=== PATIENT | male | born 1945 | race Caucasian/White ===

== ENCOUNTER → 2017-08-03 | Outpatient (CLI) | payer MEDICARE, BC, OTHER ==
--- NOTE | 2017-08-03 17:03 | KCIC ---
INDICATION: Radiculopathy. Chronic neck pain extending into both shoulder blades. Prior surgery. TECHNIQUE: Sagittal T1, sagittal T2, sagittal STIR, axial T2, and axial T2 gradient sequences are provided. Comparison is from July 28, 2016. FINDINGS: There is no change in alignment. There is hardware artifact from anterior cervical fusion from C4 through C6. There is no worrisome marrow lesion or marrow edema. There is no definite cord signal abnormality. The cervicomedullary junction is unremarkable. Allowing for mild motion and for hardware artifact, degenerative findings will be estimated below: C2-C3: Disc osteophyte complex, uncinate process spurring, buckling of ligamentum flavum, and facet hypertrophy are also present. Midline AP diameter of the thecal sac is narrowed to 7 mm. There is no cord flattening. There is no definite foraminal narrowing. C3-C4: Disc osteophyte complex and uncinate process spurring are noted. There is also buckling of ligamentum flavum and facet hypertrophy which is greater on the left. Midline AP diameter of the thecal sac is narrowed to 7 mm. There is probably foraminal narrowing bilaterally which is at least mild. C4-C5: There is no definite canal or foraminal compromise. C5-C6: There is no definite canal or foraminal compromise. Hardware artifact limits evaluation. C6-C7: There is a disc osteophyte complex and uncinate process spurring. Midline AP diameter of the thecal sac is 10 mm, minimally narrowed. Foraminal narrowing bilaterally is probably high-grade. C7-T1: Disc osteophyte complex and uncinate process spurring are noted with mild left foraminal narrowing. Overall, findings are similar to prior study. IMPRESSION: 1. Degenerative changes in the cervical spine are greatest at C2-C3, C3-C4, and C6-C7. Findings are similar to prior study. 2. Anterior cervical fusion of C4-C6. 3. Study again is degraded by motion. Consider post myelogram CT if further workup is required. Electronically signed by: Kevin Gonzalez MD (08/03/2017 5:00 PM) [facility]-[email or web address]
== END | disposition home or self-care (01) ==
LOC: KCIC MRI 15:55
PROVIDERS: ATTEND Neurological Surgery
DX: M47.892 Other spondylosis, cervical region (principal)
CPT/HCPCS: 72141

== ENCOUNTER → 2018-12-05 | Outpatient (CLI) | payer MEDICARE, BC, OTHER ==
[2017-09-02 11:00] VITALS: BP 149/65
[~2018-12-05] MED LIST: ASPI-482 PO; CLON0.5T11 PO; CRESTOR5 MG PO; DOCU-109 PO; FINA5TAB PO; FLUO15CR TP; HYDR-2765 PO; HYDR-3165 PO; METH-38 PO; MONT10TA9 PO; VALS40TA2 PO
--- NOTE | 2018-12-05 09:54 | KCIC ---
EXAM: Cervical spine MRI without contrast. HISTORY: Radiculopathy. TECHNIQUE: Multiplanar, multisequence magnetic resonance imaging of the cervical spine was performed without contrast. COMPARISON: 08/03/2017 FINDINGS: There is instrumented anterior spinal fusion and interbody fusion at C4-C6. The presence of metallic instrumentation limits evaluation at these levels. There is mild anterolisthesis of C6 on C7 and T1 on T2. There is degenerative endplate remodeling and disc desiccation at all levels. No suspicious osseous lesion is seen. There is no acute or subacute fracture. There is edema within the right posterior paraspinal musculature at the edge C4 and surrounding the right facet joint C4-C5, likely degenerative or inflammatory in etiology. There is deformation of the cervical spinal cord at multiple levels due to central canal stenosis. There is an elongated T2 hyperintense lesion within the right aspect of the cervical spinal cord at C2, likely due to myelomalacia. There is suspected congenital narrowing of the central canal at the cervical levels. At C2-C3, there is a broad-based posterior central disc protrusion superimposed on a disc bulge and endplate remodeling. There is moderate right and mild left facet arthropathy. There is buckling of the ligamentum flavum. There is mild right foraminal stenosis. There is slight deformation of the ventral aspect of the spinal cord and mild central canal stenosis measuring 9.0 mm in anterior posterior dimension. At C3-C4, there is a broad-based posterior central disc protrusion superimposed on a disc bulge and endplate osteophytosis. There is moderate bilateral facet arthropathy. There is bilateral uncovertebral arthropathy. There is mild to moderate right and moderate to severe left foraminal stenosis. There is deformation of the cervical spinal cord and moderate central canal stenosis measuring 7.7 mm anterior posterior dimension. At C4-C5, there is instrumented fusion. There is moderate to severe bilateral facet arthropathy. There is mild right foraminal stenosis. There is mild central canal stenosis measuring 8.6 mm in anterior posterior dimension. At C5-C6, there is instrumented fusion. There is moderate bilateral facet arthropathy. There is moderate bilateral foraminal stenosis. At C6-C7, there is a disc bulge and endplate osteophytosis with bilateral posterior lateral disc osteophyte complexes. There is mild facet arthropathy. There is uncovertebral arthropathy. There is moderate right greater than left foraminal stenosis. IMPRESSION: 1. Demonstrated anterior spinal fusion and interbody fusion at C4-C6. This is stable in appearance. 2. Multilevel degenerative change throughout the cervical spine, described in detail above. The combination of degenerative changes and suspected congenital narrowing of the cervical central canal results in significant stenosis at the aforementioned levels. These findings are not significantly changed compared to the prior study. 3. Linear T2 hyperintense lesion within the right lateral aspect of the cervical spinal cord at C2. This is stable in appearance and likely due to focal myelomalacia. There is deformation of the cervical spinal cord at multiple additional levels without convincing spinal cord signal abnormality. 4. Suspected edema within the right posterior paraspinal musculature at C3-C4 and surrounding the right facet joint at C4-C5, likely degenerative/inflammatory. Electronically signed by: Neida Ewing MD (12/05/2018 9:51 AM) [facility]-KCIC[facility]
== END | disposition home or self-care (01) ==
LOC: KCIC MRI 08:28
PROVIDERS: ATTEND Neurological Surgery
DX: M43.22 Fusion of spine, cervical region (principal); M47.892 Other spondylosis, cervical region; M50.10 Cervical disc disorder with radiculopathy, unspecified cervical region; M25.78 Osteophyte, vertebrae; M12.88 Other specific arthropathies, not elsewhere classified, other specified site; M48.02 Spinal stenosis, cervical region; M50.11 Cervical disc disorder with radiculopathy, high cervical region
CPT/HCPCS: 72141

== ENCOUNTER → 2019-11-26 | Outpatient (CLI) | payer MEDICARE, BC, OTHER ==
[2017-09-02 11:00] VITALS: BP 149/65
[~2019-11-26] MED LIST changes: +CLON-77 PO; -CLON0.5T11 PO; +MONT10TA49 PO; -MONT10TA9 PO
--- NOTE | 2019-11-26 17:56 | KCIC ---
CERVICAL SPINE 2-3V History: Chronic neck pain. Technique: 2 views cervical spine. Comparison: MRI December 05, 2018. Findings: Anterior stabilization and interbody fusion C4-C6. Unchanged alignment. Normal vertebral body height. No fracture. Prevertebral soft tissues unremarkable. Multilevel cervical spondylosis most prominent C2-C3 and C3-C4. C7-T1 articulation not well seen on lateral view due to overlying structures. Impression: 1. Anterior stabilization and interbody fusion C4-C6, unchanged alignment. 2. Multilevel cervical spondylosis. Electronically signed by: Camron Andrade DO (11/26/2019 5:53 PM) [facility]
== END | disposition home or self-care (01) ==
LOC: KCIC 13:59
PROVIDERS: ATTEND Neurological Surgery
DX: M47.812 Spondylosis without myelopathy or radiculopathy, cervical region (principal); M43.22 Fusion of spine, cervical region
CPT/HCPCS: 72040

== ENCOUNTER → 2019-12-11 | Outpatient (CLI) | payer MEDICARE, BC, OTHER ==
[2017-09-02 11:00] VITALS: BP 149/65
--- NOTE | 2019-12-11 17:20 | KCIC ---
CT scan of the cervical spine without contrast 12/11/2019 Clinical history: Neck pain which radiates down both arms. Technique: Unenhanced, contiguous, 0.6 mm axial sections were obtained through the cervical spine. 2.5 mm reconstructed axial and 2 mm coronal and sagittal reconstructed images were obtained. One or more of the following individualized dose reduction techniques were utilized for this study: 1. Automated exposure control. 2. Adjustment of the mA and/or kV according to patient size. 3. Use of iterative reconstruction technique. Findings: Comparison is made to the patient's MRI of the cervical spine dated 12/05/2018. Sagittal and coronal reconstructed images demonstrate minimal lateral curvature of the cervical spine, convex to the right. There is straightening of the normal cervical lordosis. The patient is post anterior discectomy and fusion using an anterior plate, bone screws and bone graft material at C4-5 and C5-6. Degenerative changes are seen involving the remaining cervical disc spaces consisting of varying degrees of disc space narrowing, vertebral endplate sclerosis and mild to moderate anterior and posterior vertebral body osteophyte formation. No fracture or subluxation of the cervical vertebrae is seen. At the C2-3 disc space there is a mild generalized disc bulge. Degenerative changes are seen involving the uncovertebral and facet joints, right greater than left. These findings result in mild central spinal canal stenosis with minimal cord impingement. No neural foraminal stenosis is seen. At the C3-4 disc space there is a mild to moderate generalized disc bulge. Degenerative changes are seen involving the uncovertebral and facet joints bilaterally. These findings result in mild to moderate central spinal canal stenosis with mild cord impingement. Mild to moderate bilateral neural foraminal stenosis is seen. At the C4-5 level posterior vertebral body osteophyte formation is seen. Degenerative changes are seen involving the uncovertebral and facet joints bilaterally. These findings do not result in significant central spinal canal or neural foraminal stenosis. At the C5-6 level posterior vertebral body osteophyte formation is seen. Degenerative changes are seen involving the uncovertebral and facet joints bilaterally. These findings do not result in significant central spinal canal stenosis. Mild to moderate bilateral neural foraminal stenosis is seen. At the C6-7 disc space there is a moderate generalized disc bulge. Degenerative changes are seen involving the uncovertebral and facet joints bilaterally. These findings efface the anterior CSF resulting in mild central spinal canal stenosis without evidence of cord impingement. Moderate bilateral neural foraminal stenosis is seen. At the C7-T1 disc space there is a mild generalized disc bulge. Degenerative changes are seen involving the facet joints bilaterally. These findings do not result in significant central spinal canal or neural foraminal stenosis. IMPRESSION: 1. Post anterior discectomy and fusion at C4-5 and C5-6. 2. Degenerative changes are seen throughout the cervical spine. These findings result in mild central spinal canal stenosis at C2-3 with minimal cord impingement, mild to moderate central spinal canal stenosis with mild cord impingement at C3-4 and mild central spinal canal stenosis without evidence of cord impingement at C6-7. Mild to moderate bilateral neural foraminal stenosis is seen at C3-4 and C5-6. Moderate bilateral neural foraminal stenosis is seen at C6-7. Electronically signed by: Andriy Harrington MD (12/11/2019 5:17 PM) [id number]
== END | disposition home or self-care (01) ==
LOC: KCIC CT 10:59
PROVIDERS: ATTEND Neurological Surgery
DX: M47.22 Other spondylosis with radiculopathy, cervical region (principal); M50.11 Cervical disc disorder with radiculopathy, high cervical region; M48.02 Spinal stenosis, cervical region; M47.814 Spondylosis without myelopathy or radiculopathy, thoracic region; M51.24 Other intervertebral disc displacement, thoracic region; M25.78 Osteophyte, vertebrae; Z98.1 Arthrodesis status
CPT/HCPCS: 72125

== ENCOUNTER → 2020-01-16 | Outpatient (CLI) | payer MEDICARE, BC, OTHER ==
[2017-09-02 11:00] VITALS: BP 149/65
[~2020-01-16] MED LIST changes: +BUPIVACAINE MPF 0.25% 10 ML VIAL. ONE; +FLUT16SP NS; +methylPREDNISolone ACETATE 40 MG/ML VIAL. ONE
--- NOTE | 2020-01-16 14:01 | PAIN ---
DATE OF SERVICE: 01/16/2020 INITIAL CONSULTATION FOR PAIN CLINIC CHIEF COMPLAINT: Neck and bilateral shoulder pain. HISTORY OF PRESENT ILLNESS: This is a 74-year-old male who presents with history of pain in the base of neck and shoulders for about 2 years now, but worse over the past few months. The patient reports it is gradually increasing, not a result of any specific injury or action he is aware of. He has had cervical fusion in the past in 2009 and in 2017 with a fusion both anteriorly and posteriorly. The patient reports the pain is becoming more constant, shooting across the shoulders and the upper extremities occasionally, mostly in the neck and shoulders itself. The patient reports it is worse with standing, walking, changing positions, standing from a seated position, using his upper extremities over his head, any weight lifting, bearing with both the upper extremities and essentially equal right and left. The patient reports it awakens him from sleep at least once or twice a night, does not affect his bowel or bladder control or his ability to walk, but it is painful with changing positions, better with sitting or resting, supporting his head on a pillow or cushion or headrest. The patient reports he has had physical therapy in October through September 2019, also exercise which he is doing currently and applying heat packs which does decrease the pain and he reports a deep tissue massage has been quite helpful, but only lasts about 3 hours to decrease the pain. The patient did have an MRI scan of the cervical spine showing previous posterior diskectomy and fusion, C4-C5, C5-C6 degenerative changes throughout the cervical spine resulting in mild central spinal canal stenosis at C2-C3 with minimal cord impingement, [id number] central spinal canal stenosis with mild cord impingement at C3-C4, mild central spinal canal stenosis without impingement at C6-C7 and [id number] bilateral neural foraminal stenosis at C3-C4 and C5-C6 with mild bilateral neural foraminal stenosis at C6-C7. The patient reports no loss of motor function in the upper extremities, but significant fatigability with repetitive motions of the arms. PAST MEDICAL HISTORY: Significant for hearing loss, prostate hypertrophy. PAST SURGICAL HISTORY: Includes hemilaminotomy of cervical in 2009 and fusion in 2017 posteriorly. CURRENT MEDICATIONS: Include finasteride, Diovan, clonazepam, fluticasone and Crestor. ALLERGIES: THE PATIENT IS ALLERGIC TO PENICILLIN AND SULFA. FAMILY HISTORY: Significant for colon cancer. SOCIAL HISTORY: The patient drinks alcohol about 1 beer or glass of wine maybe once a month. The patient does not smoke, does not use any illegal, illicit or recreational drugs. He is , lives with his spouse, lives locally in [place], [place] and is currently retired. REVIEW OF SYSTEMS: The patient's review of systems is positive for those items mentioned in history of present illness. All systems reviewed and otherwise negative. It is complete, full, and well documented on the patient's chart. PHYSICAL EXAMINATION: VITAL SIGNS: The patient's blood pressure is 149/82, pulse 63, respirations 18, temperature 97.2 degrees Fahrenheit, height is 5 feet 9 inches, weight is 173 pounds. GENERAL: The patient is awake, alert, oriented, appropriate, very pleasant demeanor. HEENT: Shows normocephalic, atraumatic. Extraocular movements are intact and symmetrical. The patient wears eye glasses. Oral cavity: Mucous membranes moist and pink. Dentition is intact. NECK: Shows anterior throat supple without palpable lymphadenopathy noted. Swallow reflex symmetrical. CHEST: Shows normal on inspection. Breath sounds are clear bilaterally. HEART: Shows S1, S2 clear. No murmurs auscultated. ABDOMEN: Soft, nontender, nondistended. No palpable organomegaly is noted. No rebound or guarding demonstrated. BACK: Shows spine grossly in the midline. Normal appearing thoracic kyphosis and cervical lordotic curvature and lumbar lordotic curvature is slightly flattened. The patient's cervical paraspinous muscle shows symmetrical on inspection, on palpation shows some significant tenderness and very firm rope-like musculature throughout the upper, middle and lower distribution of cervical paraspinous muscles as well as the trapezius and into the thoracic paraspinous muscles, more on the right than the left in the thoracic distribution with essentially equal on the trapezius as well as cervical paraspinous muscles, very firm rope-like musculature consistent with trigger point areas of muscle bilaterally without significant radiation, but very firm, very tender even with moderate to deeper palpation. EXTREMITIES: The patient's upper extremities show deep tendon reflexes at 2+ in the biceps and triceps tendons. 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 Peripheral pulses are 2+ radial. No peripheral edema is noted. Upper extremities are warm and dry to touch, equal in color and appearance. Shoulder shrug is strong and intact without loss of strength on resistance as is abduction of the shoulder at 90 degrees bilaterally. SKIN: Shows warm and dry, good turgor. No edema. No sores, rashes or bruising throughout. IMPRESSION: 1. This is a 74-year-old male with approximate 2-year history of increasing pain at base of the neck and shoulders, status post cervical anterior and posterior fusions. 2. MRI scan of cervical spine as noted. 3. History of arthritis. PLAN: Options were discussed with the patient including conservative medical managements, physical therapies and interventional techniques. He would like to pursue interventional techniques. We discussed trigger point injections of the cervical paraspinous musculature as well as the posterior trapezius and thoracic paraspinous muscles using description as well as anatomical models to describe the procedure. The patient would like to proceed. Risks were discussed including but not limited to bleeding, infection, possibility of intravascular injection and sequelae, spread of local anesthetic and numbness, pneumothorax, side effects of steroid medication and poor results regarding pain control. The patient understands and wished to proceed. The patient will return to clinic in approximately 2 weeks for followup. He was counseled on return appointment, activity level and side effects to be aware of. DIAGNOSIS: Myofascial pain. PROCEDURE: Trigger point injections, bilateral cervical paraspinous musculature, bilateral trapezius musculature, bilateral thoracic paraspinous musculature under sterile prep and drape using local anesthetic. MEDICATION INJECTED: A total of 40 mg Depo-Medrol and total of 11 mL of 0.25% bupivacaine after negative aspiration at each injection site. CONDITION AT DISCHARGE: Stable. The patient tolerated the procedure well, had no complications. SANDRA KING MD DR: RAMIRO/fide JOB#: [id number] / [id number] BANDAR Chavez
== END | disposition home or self-care (01) ==
LOC: PNCL 08:44
PROVIDERS: ATTEND Anesthesiology
DX: M54.2 Cervicalgia (principal); M25.511 Pain in right shoulder; M25.512 Pain in left shoulder; N40.0 Benign prostatic hyperplasia without lower urinary tract symptoms; M19.90 Unspecified osteoarthritis, unspecified site; Z98.890 Other specified postprocedural states; Z79.899 Other long term (current) drug therapy; Z88.0 Allergy status to penicillin; Z88.1 Allergy status to other antibiotic agents; Z80.0 Family history of malignant neoplasm of digestive organs
CPT/HCPCS: 20553; J1030; J3490

== ENCOUNTER → 2020-01-30 | Outpatient (CLI) | payer MEDICARE, BC, OTHER ==
[2017-09-02 11:00] VITALS: BP 149/65
--- NOTE | 2020-01-30 11:20 | PAIN ---
DATE OF SERVICE: 01/30/2020 PROGRESS NOTE FOR PAIN CLINIC DIAGNOSES: Cervical radiculopathy with cervical degenerative disk disease and cervical post-laminectomy syndrome and myofascial pain. HISTORY OF PRESENT ILLNESS: The patient is a 74-year-old male who returns for followup status post trigger point injections. The patient returns reporting about 50% improvement in the neck, more improvement on the left side than the right, still has some significant pain in the right neck and base of the neck, shoulder and upper back. The patient reports the left side is much better, but still has some significant pain. The patient reports no new motor or sensory deficits, no new deficits. The patient reports the pain is sharp and tight at times, again worse on the right than the left, becoming more constant with time. The patient reports initially though he is increasing his activity with greater distance walking, doing work activities, household activities with much greater ease and comfort, traveling with greater ease. The patient reports he is sleeping well at night, but it does awaken him occasionally, not every night. The patient rates his pain as 8 on a scale of 10 at its worst over the past week, 6 on average and a 3 at its least and is a 3 today. The patient reports no new motor or sensory deficits, no new bowel or bladder incontinence. PHYSICAL EXAMINATION: VITAL SIGNS: The patient's blood pressure is 148/78, pulse 66, respirations 18, temperature 97.6 degrees Fahrenheit, weight is 172 pounds. GENERAL: The patient is awake, alert, oriented, appropriate, very pleasant demeanor. HEENT: Shows normocephalic, atraumatic. Extraocular movements are intact and symmetrical. Oral cavity shows mucous membranes moist and pink. NECK: Shows anterior throat supple without palpable lymphadenopathy noted. Swallow reflex symmetrical. CHEST: Shows normal on inspection. Breath sounds are clear bilaterally. HEART: Shows S1, S2 clear. No murmurs auscultated. ABDOMEN: Soft, nontender, nondistended. BACK: Shows spine grossly in the midline. The patient does have a well-healed surgical scar in the cervical distribution with slight flattening of the cervical lordotic curvature, thoracic kyphotic curvature is slightly increased as well. Cervical paraspinous muscle shows symmetrical on inspection, with palpation shows some very firm rope-like musculature in the middle and lower distribution of the cervical paraspinous musculature bilaterally, more tender on the right than the left and into the superior medial trapezius, again more tender on the right than the left, but present bilaterally with very firm rope-like musculature, but without specific radiation with palpation, but very firm consistent with trigger point areas of musculature. This is true into the thoracic paraspinous musculature and the upper distribution, again more on the right than the left and much more tender on the right. EXTREMITIES: The patient's upper extremities show deep tendon reflexes 2+ in the biceps, triceps tendons. 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 Peripheral pulses are 2+ radial distribution. No peripheral edema bilaterally. Options were discussed with the patient. The patient's old chart was reviewed as his current medication regimen updated. Current review of systems updated today as well. We will proceed with trigger point injections of the bilateral cervical paraspinous musculature, trapezius musculature and thoracic paraspinous musculature under sterile prep and drape. Risks were discussed including but not limited to bleeding, infection, possibility of intravascular injection sequelae, spread of local anesthetic and numbness, pneumothorax, side effects of steroid medication and poor results regarding pain control. The patient understands and wished to proceed. The patient will return to clinic in approximately 2 weeks for followup. He was counseled on return appointment, activity level and side effects to be aware of. DIAGNOSIS: Myofascial pain. PROCEDURE: Trigger point injections, bilateral cervical paraspinous musculature, bilateral trapezius musculature, bilateral thoracic paraspinous musculature under sterile prep and drape using local anesthetic. MEDICATION INJECTED: A total of 40 mg Depo-Medrol plus total of 11 mL of 0.25% bupivacaine after negative aspiration at each injection site. CONDITION AT DISCHARGE: Stable. The patient tolerated procedure well, had no complications. SANDRA KING MD DR: RAMIRO/fide JOB#: [id number] / [id number]
== END ==
LOC: PNCL 09:48
PROVIDERS: ATTEND Anesthesiology
DX: M79.18 Myalgia, other site (principal); M50.10 Cervical disc disorder with radiculopathy, unspecified cervical region; M96.1 Postlaminectomy syndrome, not elsewhere classified
CPT/HCPCS: 20553; J1030; J3490

== ENCOUNTER → 2020-02-13 | Outpatient (CLI) | payer MEDICARE, BC, OTHER ==
[2017-09-02 11:00] VITALS: BP 149/65
--- NOTE | 2020-02-13 12:07 | PAIN ---
DATE OF SERVICE: 02/13/2020 PROGRESS NOTE FOR PAIN CLINIC DIAGNOSES: 1. Cervical radiculopathy with cervical degenerative disk disease post-cervical laminectomy syndrome. 2. Myofascial pain. HISTORY OF PRESENT ILLNESS: The patient is a 74-year-old male who returns for followup status post trigger point injections of the cervical trapezius and thoracic paraspinous musculature on 01/30/2020. The patient did very well. The patient reports the left side is doing much better, about 75% improvement in the right side, still significant pain in the base of the neck and the right upper shoulder. The patient reports it is much better. He has increased his activity with greater ease and comfort. He is sleeping better at night. He is using his upper extremities with much greater ease and range, especially on the left, but on the right side, he still has some significant pain in the base of neck and shoulder as well as the upper neck on the right side without significant radiation in the right upper extremity at this time. The patient rates his pain as 7 on a scale of 10 at its worst over the past week, 4 on average, 2 at its least and is a 4 today. The patient reports it is aching and tight, becoming more constant with time on the right side primarily. The patient reports no new motor or sensory deficits. No new changes. PHYSICAL EXAMINATION: VITAL SIGNS: The patient's blood pressure is 149/76, pulse 68, respirations 18, temperature 98.1 degrees Fahrenheit, height is 5 feet 9 inches, weight is 170 pounds. GENERAL: The patient is awake, alert, oriented, appropriate, very pleasant demeanor. HEENT: Head shows normocephalic, atraumatic. Previous scarring from skin grafting noted. Eyes: Extraocular movements are intact and symmetrical. Oral cavity: His mucous membranes are moist and pink. Dentition is intact. NECK: Shows anterior throat supple without palpable lymphadenopathy noted. Swallow reflex symmetrical. CHEST: Shows normal on inspection. Breath sounds are clear bilaterally. HEART: Shows S1, S2 clear. No murmurs auscultated. ABDOMEN: Soft, nontender, nondistended. No palpable organomegaly is noted. No rebound or guarding demonstrated. BACK: Shows spine grossly in the midline with surgical scarring noted in the cervical distribution as well. Cervical paraspinous muscle shows symmetrical on inspection, with palpation shows some moderate tenderness diffusely, more on the right than the left, but present bilaterally with very firm rope-like musculature consistent with areas of trigger point musculature in the cervical paraspinous musclature, superior medial and lateral trapezius, greater on the right than the left, but present bilaterally once again. Also noted in the upper thoracic paraspinous musculature, again more on the right than the left, but without specific radiation, but very firm rope-like musculature in this distribution as well consistent with trigger point areas of muscle. EXTREMITIES: The patient's upper extremities show deep tendon reflexes 2+ in the biceps and triceps tendons. Motor exam is strong with cfo controller strength rated at 5/5 as is bicep and tricep flexion. Peripheral pulses are 2+. No peripheral edema is noted. Options were discussed with the patient. The patient's old chart was reviewed as his current medication regimen updated. Current review of systems is updated today as well. We will proceed with trigger point injections of the identified musculature. Risks were again discussed including, but not limited to bleeding, infection, possibility of intravascular injection sequelae, spread of local anesthetic and numbness, side effects of steroid medication and poor results regarding pain control. The patient understands and wished to proceed. The patient will return to clinic in approximately 2 weeks for followup. He was counseled on return appointment, activity level and side effects to be aware of. DIAGNOSIS: Myofascial pain. PROCEDURE: Trigger point injections, bilateral cervical paraspinous musculature, bilateral trapezius musculature, bilateral thoracic paraspinous musculature under sterile prep and drape using local anesthetic. MEDICATION INJECTED: A total of 40 mg Depo-Medrol plus total of 10 mL of 0.25% bupivacaine after negative aspiration at each injection site. CONDITION AT DISCHARGE: Stable. The patient tolerated procedure well, had no complications. SANDRA KING MD DR: RAMIRO/fide JOB#: [id number] / [id number]
== END ==
LOC: PNCL 09:24
PROVIDERS: ATTEND Anesthesiology
DX: M79.18 Myalgia, other site (principal); M50.10 Cervical disc disorder with radiculopathy, unspecified cervical region; M96.1 Postlaminectomy syndrome, not elsewhere classified
CPT/HCPCS: 20553; J1030; J3490

== ENCOUNTER → 2020-02-27 | Outpatient (CLI) | payer MEDICARE, BC, OTHER ==
[2017-09-02 11:00] VITALS: BP 149/65
[~2020-02-27] MED LIST changes: +IOHEXOL 180 MG/ML 10 ML VIAL. ONE; +methylPREDNISolone ACETATE 80 MG/ML VIAL. ONE
--- NOTE | 2020-02-27 11:08 | PAIN ---
DATE OF SERVICE: 02/27/2020 PROGRESS NOTE FOR PAIN CLINIC DIAGNOSES: 1. Cervical radiculopathy with cervical degenerative disk disease and cervical post-laminectomy syndrome and cervical spondylosis. 2. Myofascial pain. HISTORY OF PRESENT ILLNESS: The patient is a 74-year-old male who returns for followup status post trigger point injections x 2. The patient reports while they were helpful, they were only temporary and pain is becoming much more significant on the right side of the neck, base of neck and shoulder. The patient reports it is an 8 on a scale of 10 at its worst over the past week, 5 on average, 3 at its least. The trigger point injection has helped by about 75% initially, but only for a few days. The patient reports it is aching, sharp and shooting in the base of the right neck, nothing in the right upper extremity at this point, but it is becoming more constant, more severe with extension especially and right rotation of the cervical spine, left side is nontender. The patient reports it is better at night, but does awaken him from sleep about once or twice a night. The patient reports no new motor or sensory deficits. PHYSICAL EXAMINATION: VITAL SIGNS: The patient's blood pressure 135/73, pulse 61, respirations 18, temperature 97.9 degrees Fahrenheit, height is 5 feet 9 inches, weight is 169 pounds. GENERAL: The patient is awake, alert, oriented, appropriate, very pleasant demeanor. HEENT: Exam shows normocephalic, atraumatic. The patient with previous scarring on the nose from previous surgery. The patient wears eyeglasses. Extraocular movements are intact and symmetrical. Oral cavity shows mucous membranes moist and pink. Dentition is intact. NECK: Shows anterior throat supple without palpable lymphadenopathy noted. Swallow reflex symmetrical. CHEST: Shows normal on inspection. Breath sounds are clear bilaterally. HEART: Shows S1, S2 clear. No murmurs auscultated. ABDOMEN: Soft, nontender, nondistended. No palpable organomegaly is noted. BACK: Shows spine grossly in the midline. Cervical paraspinous muscle shows symmetrical on inspection with a well-healed surgical scarring both anteriorly and posteriorly. Cervical paraspinous musculature shows symmetrical with some moderate tenderness, more on the right than the left in the superior medial and lateral cervical paraspinous musculature as well as into the superior medial trapezius, but only on the right side. Left is nontender with palpation. The patient has good rotational motion of cervical spine with significant tenderness with extension, especially extension combined with right lateral rotation with significant pain in the base of the neck, right side of the neck as well. No radiation in the upper extremities. The patient's upper extremities show deep tendon reflexes 2+ in the biceps, triceps tendons. Motor exam is strong with 5/5 fish filleter strength, bicep and tricep flexion. Options were discussed with the patient. The patient's old chart was reviewed as his current medication regimen updated. Current review of systems updated today as well. We will proceed with right sided cervical facet medial branch blocks at the C3-C4, C4-C5, C5-C6 and C6-C7 levels with fluoroscopic guidance. Risks were discussed including but not limited to bleeding, infection, possibility of epidural hematoma, subsequent neurological compromise, dural puncture, headaches, spinal cord and/or nerve damage, spread of local anesthetic and numbness, side effects of steroid medication, exposure to fluoroscopy and poor results regarding pain control. The patient understands and wished to proceed. The patient will return to clinic in approximately 2 weeks for followup. He was counseled as to return appointment, activity level and side effects to be aware of. DIAGNOSES: Cervical spondylosis. PROCEDURE: Cervical facet medial branch blocks on the right at C3-C4, C4-C5, C5-C6, C6-C7 under sterile prep and drape using local anesthetic and C-arm fluoroscopic guidance. MEDICATION INJECTED: A total of 80 mg Depo-Medrol plus total of 4 mL of 0.25% bupivacaine and 2 mL of contrast. CONDITION AT DISCHARGE: Stable. The patient tolerated procedure well, had no complications. SANDRA KING MD DR: RAMIRO/fide JOB#: [id number] / [id number]
== END | disposition home or self-care (01) ==
LOC: PNCL 09:20
PROVIDERS: ATTEND Anesthesiology
DX: M50.123 Cervical disc disorder at C6-C7 level with radiculopathy (principal); M47.22 Other spondylosis with radiculopathy, cervical region; M79.18 Myalgia, other site; Z98.890 Other specified postprocedural states; Z88.0 Allergy status to penicillin; Z88.1 Allergy status to other antibiotic agents
CPT/HCPCS: 64490; 64491; 64492; J1040; J3490; Q9965; J1030

== ENCOUNTER → 2020-04-07 | Outpatient (CLI) | payer MEDICARE, BC, OTHER ==
[2017-09-02 11:00] VITALS: BP 149/65
--- NOTE | 2020-04-07 11:27 | PAIN ---
DATE OF SERVICE: 04/07/2020 PROGRESS NOTE FOR PAIN CLINIC DIAGNOSES: 1. Cervical radiculopathy. 2. Cervical degenerative disk disease. 3. Cervical post-laminectomy syndrome. 4. Cervical spondylosis. 5. Myofascial pain. HISTORY OF PRESENT ILLNESS: The patient is a 74-year-old male who returns for followup status post both trigger point injections and most recently a right sided cervical facet medial branch block. The patient did well with about 80% improvement after the first injections, which was on 02/27/2020. The patient reports a significant improvement mostly in the upper part of the neck, but lower part of the neck still has some significant pain on the right side radiating occasionally across to the left, but mainly just in the neck itself, does not radiate into the upper extremity. The patient reports it is a 7 on a scale of 10 at its worst, 5 on average, 2 at its least and is a 5 today. The patient reports it is worse with activity, standing, walking, better with sitting or lying down, does not awaken him from sleep. Initially, he was doing much better with rotational motion of the head, especially extension, right lateral rotation and feels it is still significantly improved, but it is decreasing in improvement to about 50% level overall. The patient reports it is aching, sharp, shooting, constant, on and off in intensity, but present more now than it was 6 weeks ago. The patient reports no new changes. No new motor or sensory deficits or other complaints. PHYSICAL EXAMINATION: VITAL SIGNS: The patient's blood pressure is 138/85, pulse 69, respirations are 18, temperature 98.4 degrees Fahrenheit, height is 5 feet 9 inches, weight is 173 pounds. GENERAL: The patient is awake, alert, oriented, appropriate, very pleasant demeanor. HEENT: Shows normocephalic, atraumatic. Extraocular movements are intact and symmetrical. Oral cavity shows mucous membranes moist and pink. Dentition is intact. NECK: Shows anterior throat supple without palpable lymphadenopathy noted. Swallow reflex symmetrical. CHEST: Shows normal on inspection. Breath sounds clear to auscultation bilaterally. HEART: Shows S1, S2 clear. No murmurs auscultated. ABDOMEN: Soft, nontender, nondistended. BACK: Shows spine grossly in the midline. Cervical paraspinous muscle shows symmetrical on inspection, on palpation shows some moderate tenderness diffusely in the middle to lower distribution of the paraspinous muscles, more on the right than the left, but some on the left as well as the superior medial trapezius, but without significant trigger point areas just firm musculature, which is moderately tender with rotation. The patient shows significant pain with extension, especially right lateral rotation past 45 degrees, left lateral rotation past 45 degrees is moderately tender, but more on the right side with this rotation. The patient shows better decrease in pain with forward flexion, but still some moderate pain on the right side with flexion. EXTREMITIES: Upper extremities show deep tendon reflexes 2+ in the biceps, triceps tendons. Motor exam is 5/5 with shoemaking finisher strength, bicep and tricep flexion and symmetrical. Peripheral pulses are 2+ radial. No peripheral edema bilaterally. Shoulder shrug is strong and intact with some minor pain in the base of the neck on the right with shoulder shrug and resistance, but no loss of strength on resistance. PLAN: Options were discussed with the patient. The patient's old chart was reviewed as his current medication regimen updated. Current review of systems updated today as well. We will proceed with a right sided medial branch facet blocks C4-C5, C5-C6 and C6-C7 level on the right side only under sterile prep and drape using local anesthetic. Risks were discussed including but not limited to bleeding, infection, possibility of epidural hematoma, subsequent neurological compromise, dural puncture, headaches, spinal cord and/or nerve damage, Spread of local anesthetic and numbness, side effects of steroid medication, exposure to fluoroscopy as well as poor results regarding pain control. The patient understands and wished to proceed. The patient will return to clinic in approximately 4 weeks for followup. He was counseled as to return appointment, activity level and side effects to be aware of. DIAGNOSIS: Cervical spondylosis. PROCEDURE: Cervical facet medial branch blocks at C4-C5, C5-C6, C6-C7 on the right under sterile prep and drape using local anesthetic. MEDICATION INJECTED: A total of 120 mg Depo-Medrol plus 3 mL of 0.25% bupivacaine and 1.5 mL total of contrast. CONDITION AT DISCHARGE: Stable. The patient tolerated procedure well, had no complications. SANDRA KING MD DR: RAMIRO/fide JOB#: [id number] / [id number]
== END ==
LOC: PNCL 09:38
PROVIDERS: ATTEND Anesthesiology
DX: M47.812 Spondylosis without myelopathy or radiculopathy, cervical region (principal); M50.10 Cervical disc disorder with radiculopathy, unspecified cervical region; M79.18 Myalgia, other site; M96.1 Postlaminectomy syndrome, not elsewhere classified
CPT/HCPCS: 64490; 64491; 64492; J1030; J1040; J3490; Q9965

== ENCOUNTER → 2020-05-16 | Outpatient (CLI) | payer MEDICARE, BC, OTHER ==
[2017-09-02 11:00] VITALS: BP 149/65
[~2020-05-16] MED LIST changes: -IOHEXOL 180 MG/ML 10 ML VIAL. ONE; -methylPREDNISolone ACETATE 80 MG/ML VIAL. ONE
--- NOTE | 2020-05-16 09:09 | PAIN ---
DATE OF SERVICE: 05/16/2020 PROGRESS NOTE FOR PAIN CLINIC DIAGNOSES: Cervical radiculopathy with cervical degenerative disk disease, cervical post-laminectomy syndrome and myofascial pain. HISTORY OF PRESENT ILLNESS: The patient is a 75-year-old male who returns for followup status post facet joint injections, cervical as well as trigger point injections. The patient reports he is doing very well with about an 80% improvement with each of the injections thus far. The patient reports some increased tight sensation and pulling in the base of the neck, more on the right side than the left, and some on the left side as well. The patient reports it is coming up over the past 2 weeks or so. Otherwise, he is doing very well, his last visit was 04/07, did very well with the neck with increased mobility. Reports still he is not sleeping well at night, but not from the pain. The patient reports his pain is an 8 on a scale of 10 at its worst in the past week, 4 on average, 2 at its least and is a 4 today. The patient reports no new motor or sensory deficits, describes the pain as radiating, constant in the base of the neck and right shoulder especially, but some on the left, aching and tight with mobility activity. Again, awakens him from sleep, but generally not from the pain. He has difficulty getting in the correct position where he can actually relax and sleep. The patient reports the pain is radiating to the right arm occasionally, but mostly just in the base of the neck and shoulder. PHYSICAL EXAMINATION: VITAL SIGNS: The patient's blood pressure 142/78, pulse 72, respirations 18, temperature 98.0 degrees Fahrenheit. Height is 5 feet 9 inches, weight is 170 pounds. GENERAL: The patient is awake, alert, oriented, appropriate, very pleasant demeanor. HEENT: Shows normocephalic, atraumatic. Extraocular movements are intact and symmetrical. The patient is wearing eyeglasses. Oral cavity: Mucous membranes are moist and pink. Dentition is intact. NECK: Shows anterior throat supple without palpable lymphadenopathy noted. Swallow reflex is symmetrical. CHEST: Shows normal on inspection. Breath sounds are clear bilaterally. HEART: Shows S1, S2 clear. No murmurs auscultated. ABDOMEN: Soft, nontender, nondistended. BACK: Shows spine grossly in the midline. Cervical paraspinous muscle shows symmetrical on inspection, with well-healed surgical scarring noted, with palpation shows some very firm rope-like musculature in the bilateral cervical paraspinous musculature in the inferior aspect, more on the right than the left, but very firm rope-like musculature consistent with trigger point areas of muscle without specific radiation, very tender with palpation on the right and moderately tender on the left. This is true into the trapezius musculature on the right side much more significantly, but also present on the left with very firm rope-like musculature consistent with trigger point areas and also into the superior and middle aspect of the rhomboid and thoracic paraspinous musculature, but only on the right. Left side is supple and nontender. EXTREMITIES: The patient's upper extremities show deep tendon reflexes 2+ in the biceps and triceps tendons. Motor exam is strong with 5/5 floral decorator strength, bicep and tricep flexion. Peripheral pulses are 2+ radial. No peripheral edema is noted. Options were discussed with the patient. The patient's old chart was reviewed as his current medication regimen updated. Current review of systems updated today as well. We will proceed with trigger point injections of the identified musculature. Risks were discussed including but not limited to bleeding, infection, possibility of intravascular injection sequelae, spread of local anesthetic and numbness, pneumothorax, side effects of steroid medication and poor results regarding pain control. The patient understands and wished to proceed. The patient will return to clinic in approximately 4 weeks for followup, was counseled on return appointment, activity level and side effects to be aware of. DIAGNOSIS: Myofascial pain. PROCEDURE: Trigger point injections bilateral cervical paraspinous musculature, bilateral trapezius and right thoracic paraspinous musculature under sterile prep and drape using local anesthetic. MEDICATION INJECTED: A total of 40 mg Depo-Medrol, 9 mL of 0.25% bupivacaine after negative aspiration at each injection site. CONDITION AT DISCHARGE: Stable. The patient tolerated the procedure well, had no complications. SANDRA KING MD DR: RAMIRO/fide JOB#: [id number] / [id number]
== END | disposition home or self-care (01) ==
LOC: PNCL 07:34
PROVIDERS: ATTEND Anesthesiology
DX: M50.10 Cervical disc disorder with radiculopathy, unspecified cervical region (principal); M96.1 Postlaminectomy syndrome, not elsewhere classified; M79.18 Myalgia, other site; Z79.899 Other long term (current) drug therapy
CPT/HCPCS: 20553; J1030; J3490